=== PATIENT | female | born 1965 | race Hispanic/Latino ===

== ENCOUNTER 2021-07-02 16:01 | Emergency (ER) | payer OTHER ==
[~2021-07-02] VITALS: Ht 152.4 cm; Wt 59.0 kg
[2021-07-02] MEDS ORDERED: AUGMENTIN 500-1 EACH PO (16:17)
[2021-07-02] MEDS ORDERED: IBUPROFEN600 MG PO (16:17)
[2021-07-02] MEDS ORDERED: MECLIZINE HCL25 MG (16:17)
[2021-07-02] MEDS ORDERED: DICYCLOMINE HCL20 MG PO (16:17)
[2021-07-02] MEDS ORDERED: MEDROL4 MG PO (16:17)
[2021-07-02] MEDS ORDERED: BANOPHEN50 MG (16:17)
== END 2021-07-02 18:04 | disposition home or self-care (01) ==
LOC: FSED 16:07
DX: R20.0 Anesthesia of skin (principal); R68.2 Dry mouth, unspecified; R50.9 Fever, unspecified
CPT/HCPCS: 70450; 99283

== ENCOUNTER 2022-04-02 17:21 | Emergency (ER) | payer OTHER ==
[~2022-04-02] VITALS: Ht 149.9 cm; Wt 56.2 kg
[~2022-04-02 17:21] MED LIST: AUGMENTIN 500-1 EACH PO; BANOPHEN50 MG; DICYCLOMINE HCL20 MG PO; IBUPROFEN600 MG PO; MECLIZINE HCL25 MG; MEDROL4 MG PO
[2022-04-02] MEDS ORDERED: IOPAMIDOL 370 MG/ML 100 ML INFUS..BTL INJ ONE (19:04)
[2022-04-02] MEDS ORDERED: PANTOPRAZOLE SO40 MG PO (20:06)
[2022-04-02 20:19] VITALS: BP 134/76
== END 2022-04-02 20:26 | disposition home or self-care (01) ==
LOC: FSED 17:32
DX: R10.2 Pelvic and perineal pain (principal); R10.13 Epigastric pain; Z98.890 Other specified postprocedural states; K76.0 Fatty (change of) liver, not elsewhere classified; Z90.49 Acquired absence of other specified parts of digestive tract; M53.86 Other specified dorsopathies, lumbar region
CPT/HCPCS: 74177; 80053; 81003; 85025; 99284; Q9967

== ENCOUNTER → 2024-08-21 | Day surgery (SDC) | payer OTHER ==
[~2024-08-21] MED LIST changes: +FENTANYL CITRATE/PF 100MCG/2 ML INJ ONE; +GLUCAGON FOR INJ 1 MG VIAL ONE; +HYOSCYAMINE SULFATE 0.5 MG/ML INJ ONE; +LIDOCAINE HCL 2% LOCAL INJ 5 ML SDV VIAL INJ ONE; +ONDANSETRON HCL INJ 2MG/ML 2ML 2 MG/ML VIAL ONE; +PANTOPRAZOLE SO40 MG PO; +PROPOFOL IV EMULSION 0 ML IV ONE; +PROPOFOL IV EMULSION 50 ML IV ONE; +VIT D3 PO
[2024-08-21] MEDS: LACTATED RINGER'S 1,000 ML ONE (12:43)
[2024-08-21 14:10] VITALS: BP 112/74; PULSE 84; RESP 16; TEMP 97.8; O2SAT 95
== END | disposition home or self-care (01) ==
LOC: OR 11:50
PROVIDERS: ATTEND Internal Medicine Gastroenterology
DX: R19.5 Other fecal abnormalities (principal); K51.20 Ulcerative (chronic) proctitis without complications; K64.8 Other hemorrhoids; R14.0 Abdominal distension (gaseous); K76.0 Fatty (change of) liver, not elsewhere classified; Z71.3 Dietary counseling and surveillance; Z68.25 Body mass index [BMI] 25.0-25.9, adult; Z01.810 Encounter for preprocedural cardiovascular examination; R94.31 Abnormal electrocardiogram [ECG] [EKG]
CPT/HCPCS: 45380; 93005; J1610; J1980; J2003; J2405; J2704; J3010; J7121; 45378